=== PATIENT | female | born 1955 | race African-American/Black ===

== ENCOUNTER 2016-05-22 15:30 | Inpatient (IN) | payer MEDICARE, MEDICAID ==
[~2016-05-22] VITALS: Ht 175.3 cm; Wt 95.3 kg
[2016-05-22] MEDS: [UNRECOGNIZED DRUG - OTHER] IVPB SCH ×2 (00:45)
[2016-05-22] MEDS: CEFTRIAXONE IVPB SCH ×2 (00:45)
[~2016-05-22 15:30] MED LIST: ALBUTEROL SULF8.5 GM INH; AMOXICILLIN500 MG ORAL; AZITHROMYCIN250 MG ORAL; CYCLOBENZAPRINE10 MG ORAL; FLONASE1 SPRAYS NASAL; FLOVENT2 PUFF2 INH; IBUPROFEN600 MG ORAL; IBUPROFEN800 MG ORAL; LEVAQUIN500 MG ORAL; OXYCODON-ACETA1 EAC2 ORAL; PERCOCET 7.5-31 EACH ORAL; PREDNISONE20 M1 PO; PREDNISONE20 MG ORAL; PRILOSEC OTC20 MG ORAL; PROAIR HFA8.5 GM INH; PROMETH-CODEIN 65 ML PO; PROMETHAZINE V237 ML ORAL; PROMETHAZINE-C118 M1 ORAL; QVAR7.3 GM INH; TRAZODONE HCL150 MG ORAL; TRILEPTAL150 MG ORAL; VISTARIL25 MG ORAL; ZANTAC150 MG ORAL; ZITHROMAX250 MG ORAL
[2016-05-22] MEDS ORDERED: Albuterol ud Inhalation HHN ONE ×2 (16:00→16:30)
[2016-05-22 16:01] VITALS: BP 150/80
--- NOTE | 2016-05-22 16:01 | Emergency Room Report ---
History of Present Illness General Chief Complaint: Upper Respiratory Illness Source: Patient, Medical Record Present Illness HPI 61-year-old female presents to emergency Department complaining of wheezing and exacerbation of asthma x2 days. Patient states her albuterol treatments at home have not been working. Patient denies fevers or chills. She reports persistent coughing 10 out of 10 pain in the back due to coughing, history of spinal surgery and ayleen placement several years ago. Denies sputum production. Denies CP, Palpitations, LOC, AMS, dizziness, Changes in Vision, Sensation, paresthesias, or a sudden severe headache. Allergies: Coded Allergies: No Known Allergies (Unverified , 10/08/13) Patient History Past Medical History: see triage record Past Surgical History: none Pertinent Family History: none Last Menstrual Period: menopause Now: No Immunizations: UTD Reviewed Nursing Documentation: PMH: Agreed, PSxH: Agreed Nursing Documentation-PMH Past Medical History: No History, Except For Hx Cardiac Problems: No Hx Hypertension: Yes Hx Pacemaker: No Hx Asthma: Yes - BRONCHITIS Hx Diabetes: No Hx Cancer: No Hx Gastrointestinal Problems: No Hx Cerebrovascular Accident: No - SCIATICA, SINUS INFECTIONS Review of Systems All Other Systems: negative except mentioned in HPI Physical Exam Vital Signs Date Time Temp Pulse Resp B/P Pulse Ox O2 Delivery O2 Flow Rate FiO2 05/22/16 15:45 97.9 90 24 150/80 97 Room Air Sp02 EP Interpretation: reviewed, normal General Appearance: no apparent distress, alert, GCS 15, non-toxic, mild distress Head: normocephalic, atraumatic Eyes: bilateral eye PERRL, bilateral eye normal inspection ENT: hearing grossly normal, normal pharynx Neck: full range of motion, no meningismus, no bony tend, supple/symm/no masses Respiratory: chest non-tender, lungs clear, normal breath sounds, no rhonchi, no respiratory distress, no retraction, no accessory muscle use, speaking full sentences, wheezing - significant expiratory wheezes bilaterally Cardiovascular #1: regular rate, rhythm, no edema Cardiovascular #2: 2+ radial (R), 2+ radial (L) Gastrointestinal: normal bowel sounds, non tender, soft, no guarding, no rebound Rectal: deferred Genitourinary: normal inspection, no CVA tenderness Musculoskeletal: back normal, gait/station normal, normal range of motion, non- tender, no calf tenderness Neurologic: alert, oriented x3, responsive, motor strength/tone normal, sensory intact, speech normal Psychiatric: judgement/insight normal, memory normal, mood/affect normal, no suicidal/homicidal ideation Reflexes: 4+ bicep (R), 4+ bicep (L), 4+ tricep (R), 4+ tricep (L), 4+ knee (R) , 4+ knee (L) Skin: normal color, no rash, warm/dry, well hydrated Lymphatic: no adenopathy Medical Decision Making PA Attestation Dr. Werner is my supervising Physician whom patient management has been discussed with. Diagnostic Impression: Primary Impression: Pneumonia Qualified Codes: J18.9 - Pneumonia, unspecified organism ER Course Pt. presents to the ED c/o cough and wheezing x 2 days, Pt. has a hx of asthma, and inhaler treatments at home are not helping. Ddx considered but are not limited to asthma exacerbation, CHF, URI, pneumonia, PE, strep pharyngitis, meningitis. Vital signs: Pt. is afebrile, VS are WNL H&PE are most consistent with asthma exacerbation, will r/o pneumonia or cardiac cause. ORDERS: - Troponins: WNL -Total CK: mildly elevated at 224 -CK-MB: WNL/ unremarkable - CBC: unremarkable -BMP: unremarkable -CXR: left sided effusion noted, will treat as pneumonia - per preliminary read in the ED By Dr. Werner. ED INTERVENTIONS: - Albuterol nebulized treatment. X 2 - 60mg Po Prednisone -IV Rocephin DISPOSITION: at this time pt. will be admitted to Dr. Jarvis for Pneumonia and dyspnea. Dr. Jarvsi agreed to admit the pt. and to continue pt. care management. Labs Test 05/22/16 17:20 05/23/16 10:15 White Blood Count 9.2 K/UL (4.8-10.8) Red Blood Count 4.53 M/UL (4.20-5.40) Hemoglobin 13.2 G/DL (12.0-16.0) Hematocrit 42.0 % (37.0-47.0) Mean Corpuscular Volume 93 FL (80-99) Mean Corpuscular Hemoglobin 29.1 PG (27.0-31.0) Mean Corpuscular Hemoglobin Concent 31.3 G/DL (32.0-36.0) Red Cell Distribution Width 12.7 % (11.6-14.8) Platelet Count 282 K/UL (150-450) Mean Platelet Volume 6.2 FL (6.5-10.1) Neutrophils (%) (Auto) 48.1 % (45.0-75.0) Lymphocytes (%) (Auto) 29.4 % (20.0-45.0) Monocytes (%) (Auto) 9.5 % (1.0-10.0) Eosinophils (%) (Auto) 11.9 % (0.0-3.0) Basophils (%) (Auto) 1.0 % (0.0-2.0) Sodium Level 144 mEQ/L (135-145) 142 mEQ/L (135-145) Potassium Level 3.1 mEQ/L (3.4-4.9) 4.2 mEQ/L (3.4-4.9) Chloride Level 102 mEQ/L (98-107) 102 mEQ/L (98-107) Carbon Dioxide Level 27 mEQ/L (20-30) 27 mEQ/L (20-30) Anion Gap 15 (5-15) 13 (5-15) Blood Urea Nitrogen 9 mg/dL (7-23) 11 mg/dL (7-23) Creatinine 1.0 mg/dL (0.5-0.9) 0.8 mg/dL (0.5-0.9) Estimat Glomerular Filtration Rate > 60 mL/min (>60) > 60 mL/min (>60) Glucose Level 110 mg/dL (74-106) 158 mg/dL (74-106) Calcium Level 9.5 mg/dL (8.6-10.2) 10.0 mg/dL (8.6-10.2) Total Creatine Kinase 294 U/L (26-140) Creatine Kinase MB 3.7 ng/mL (< 3.8) Creatine Kinase MB Relative Index 1.2 Troponin I < 0.30 ng/mL (<=0.30) Total Bilirubin 0.2 mg/dL (0.0-1.2) Aspartate Amino Transf (AST/SGOT) 27 U/L (5-40) Alanine Aminotransferase (ALT/SGPT) 24 U/L (3-33) Alkaline Phosphatase 106 U/L (35-104) Total Protein 7.3 g/dL (6.6-8.7) Albumin 4.5 g/dL (3.5-5.2) Globulin 2.8 g/dL Albumin/Globulin Ratio 1.6 (1.0-2.7) Chest X-Ray Diagnostic Results EP Interpretation: Yes - interpreted by Dr. Werner Findings: no pneumothorax, no acute cardiopulmonary disease, other - left side effusion Number of Views: 1 PA Scribe Text Interpreted by Dr. Werner Last Vital Signs Date Time Temp Pulse Resp B/P Pulse Ox O2 Delivery O2 Flow Rate FiO2 05/22/16 15:45 97.9 90 24 150/80 97 Room Air Disposition: ADMITTED INPATIENT Condition: Stable Mary Myrick May 22, 2016 16:01
[2016-05-22] MEDS ORDERED: Morphine Sulfate 4mg/ml Inj IM ONE (16:15)
--- NOTE | 2016-05-22 16:35 | History & Physical ---
History and Physical History & Physicial Vital Signs -Extended Height: 69 inches Weight: 210 pounds Temperature: 98.6 degrees F ( oral) Pulse rate: 60 /min Pulse rhythm: regular Respirations: 13 /min O2 Sat: 98% Blood Pressure: 132/82 mm Hg Calculations Body Mass Index: 31.12 Body Surface Area (m2): 2.11 History of Present Illness Hx. Source: patient Primary complaint: PULMONARY CONSULTATION Duration: 6 months Trend of sx: sudden onset Treatment: albuterol Trend of Tx: temporary relief Additional HPI: 61 year old female patient presents for pulmonary evaluation. The cough has been present for 6 months. The cough is dry and occasionally has phelgm, the color of the phelgm is yellow and clear. She admits to shortness of breath with wheezing and chest tightness. She also complains of back pain and body aches. The patient has used the following to relieve symptoms: Albuterol Her evaluation include: chest XR that stated she had pnuemonia. Active Medications: VIRTUSSIN A/C 100-10 MG/5ML ORAL SOLN (GUAIFENESIN-CODEINE) 5ml po tid CYCLOBENZAPRINE HCL 10 MG ORAL TABS (CYCLOBENZAPRINE HCL) Take one tablet daily OMEPRAZOLE 40 MG ORAL CPDR (OMEPRAZOLE) Take one tablet daily OXYCODONE-ACETAMINOPHEN 10-325 MG ORAL TABS (OXYCODONE-ACETAMINOPHEN) 1 tab every 6 hours as needed LYRICA 50 MG ORAL CAPS (PREGABALIN) Take one tablet daily then two tabs every evening. HYDROXYZINE HCL 25 MG ORAL TABS (HYDROXYZINE HCL) Take one tablet daily TRAZODONE HCL 100 MG ORAL TABS (TRAZODONE HCL) Take one tablet daily VENTOLIN HFA 108 (90 BASE) MCG/ACT INH AERS (ALBUTEROL SULFATE) 1 puff as needed Past History Past Medical History: Hx of pnuemonia Asthmatic bronchitis Surgical History: Lower back surgery- 4 disc removal Epidural injection 2016 Left knee replacement Family History: Father ; diabetes Mother ; hypertension Social History: ; 1 child: lives alone; born in [place] Risk Factors: Smoked Tobacco Use: Former smoker Cigarettes: Yes -- 1 1/2 pack(s) per day, Year started: 1960 Years smoked: 12 Years Since Last Quit: 30 Drug use: yes Substance: cocaine Comments: Past usage. Caffeine use: <1 drinks per day Alcohol use: no Review of Systems Respiratory: SEE HPI Asthma Physical Exam General Appearance: well nourished, well hydrated, moderate distress Ear, Nose &Throat External Ears: normal, no lesions or deformities Respiratory Respiratory Effort: no intercostal retractions or use of accessory muscles Palpation: normal fremitus Auscultation: diffuse wheeze with poor air entry Cardiovascular Palpation: no thrill or palpable murmurs, no displacement of PMI Auscultation: S1, S2, no murmur, rub, or gallop Musculoskeletal Gait and Station: normal and dyspneic [Lab Results Review] Assessment New Problems: Dx of Asthma, with acute exacerbation (ICD-493.92) Onset: 05/22/2016 Dx of Asthmatic bronchitis (ICD-493.90) Onset: - Dx of Body aches (ICD-780.99) Onset: - Dx of Headache (ICD-784.0) Onset: - Dx of Hx of pneumonia (ICD-V12.61) Onset: 7 months Dx of Chest tightness (ICD-786.59) Onset: - Dx of Wheezing (ICD-786.07) Onset: - Dx of Shortness of breath (ICD-786.05) Onset: - Dx of Cough (ICD-786.2) Onset: 6 months Plan New medications: VIRTUSSIN A/C 100-10 MG/5ML ORAL SOLN -- 5ml po tid CYCLOBENZAPRINE HCL 10 MG ORAL TABS -- Take one tablet daily OMEPRAZOLE 40 MG ORAL CPDR -- Take one tablet daily OXYCODONE-ACETAMINOPHEN 10-325 MG ORAL TABS -- 1 tab every 6 hours as needed LYRICA 50 MG ORAL CAPS -- Take one tablet daily then two tabs every evening. HYDROXYZINE HCL 25 MG ORAL TABS -- Take one tablet daily TRAZODONE HCL 100 MG ORAL TABS -- Take one tablet daily VENTOLIN HFA 108 (90 BASE) MCG/ACT INH AERS -- 1 puff as needed Additional Plan Comments: ADMIT IV SOLUMEDROL NEBULIZED THERAPY OXYGEN ABG CHEST XR START BREO AND SINGULAIR RESUME HOME MEDS MONITOR CLINICALLY LAYNE STEWART May 22, 2016 16:35
[2016-05-22] MEDS ORDERED: PredniSONE 20mg tab ORAL ONE (16:45)
[2016-05-22 17:33] LABS: EOSINOPHILS % (AUTO) 11.9 % (0.0-3.0); LYMPHOCYTES % (AUTO) 29.4 % (20.0-45.0); MEAN CORPUSCULAR HEMOGLOBIN 29.1 PG (27.0-31.0); MEAN CORPUSCULAR HGB CONC 31.3 G/DL (32.0-36.0); MEAN CORPUSCULAR VOLUME 93 FL (80-99); MEAN PLATELET VOLUME 6.2 FL (6.5-10.1); MONOCYTES % (AUTO) 9.5 % (1.0-10.0); NEUTROPHILS % (AUTO) 48.1 % (45.0-75.0); PLATELET COUNT 282 K/UL (150-450); RED BLOOD COUNT 4.53 M/UL (4.20-5.40); RED CELL DISTRIBUTION WIDTH 12.7 % (11.6-14.8); WHITE BLOOD COUNT 9.2 K/UL (4.8-10.8)
[2016-05-22 17:48] LABS: ANION GAP 15 (5-15); CALCIUM 9.5 mg/dL (8.6-10.2); CARBON DIOXIDE 27 mEQ/L (20-30); CHLORIDE 102 mEQ/L (98-107); GLOMERULAR FILTRATION RATE > 60 mL/min (>60); HEMOLYSIS 4; POTASSIUM 3.1 mEQ/L (3.4-4.9); SODIUM 144 mEQ/L (135-145)
[2016-05-22 18:16] VITALS: BP 141/76
[2016-05-22 20:00] VITALS: BP 139/75
[2016-05-22 20:15] LABS: TROPONIN I < 0.30 ng/mL (<=0.30)
[2016-05-22 20:24] LABS: CKMB 3.7 ng/mL (< 3.8)
[2016-05-22 21:10] VITALS: BP 155/59
[2016-05-22] MEDS ORDERED: Milk of Magnesia 30ml Ud ORAL PRN (23:30)
[2016-05-22] MEDS ORDERED: OMEPRAZOLE40 M1 ORAL (23:50)
[2016-05-22] MEDS ORDERED: LYRICA150 MG ORAL (23:56)
[2016-05-23] VITALS (7 sets, daily range): BP systolic 105–152; BP diastolic 43–84
[2016-05-23] MEDS: Norco 5mg/325mg tab ORAL PRN ×3 (00:03→18:09)
[2016-05-23] MEDS: Solu-MEDROL 40mg Inj IVP SCH ×4 (00:26→22:14)
[2016-05-23] MEDS: Zolpidem 5mg tab ORAL PRN (00:43)
[2016-05-23] MEDS: guaiFENesin w/Codeine 5ml Liq ud ORAL PRN ×3 (01:15→20:26)
--- NOTE | 2016-05-23 06:27 | History and Physical Report ---
DATE OF ADMISSION: 05/22/2016 CHIEF COMPLAINT: Asthma exacerbation and bronchitis. HISTORY OF PRESENT ILLNESS: The patient is a 61-year-old female. She has a history of chronic lower back pain, mild asthma, she presented with six days of progressive shortness of breath, wheezing and productive cough. The patient was noted to have significant wheezing and has failed to improve with aggressive outpatient therapy and is now admitted for further evaluation and care. The patient denies any chest pain, but she has had some chest tightness and wheezing. She does have a prior history of smoking. PAST MEDICAL HISTORY: Her past medical history significant for history of chronic low back pain. PAST SURGICAL HISTORY: Includes back surgery. MEDICATIONS: Current medications reconciled and reviewed. ALLERGIES: None. SOCIAL HISTORY: The patient is a prior smoker. No alcohol. No drugs. FAMILY HISTORY: None. REVIEW OF SYSTEMS: General: No fever or chills. HEENT: No headaches or visual changes. Cardiopulmonary: Positive shortness of breath. No wheezing. Positive cough. Gastrointestinal: No nausea or vomiting. Genitourinary: No urgency or frequency. Musculoskeletal: No joint pains or swelling. Neurological: No evidence of seizures. PHYSICAL EXAMINATION: VITAL SIGNS: Temperature 98.0 degrees, blood pressure 141/76, pulse of 76, and respirations 19. GENERAL: The patient is in no apparent distress. HEART: Regular rate and rhythm. LUNGS: Significant for bilateral wheezes. ABDOMEN: Soft, nontender, and nondistended. EXTREMITIES: Without clubbing, cyanosis, or edema. LABORATORY AND DIAGNOSTIC DATA: Labs, sodium 144, potassium 3.1, chloride 102, bicarbonate 27, BUN 9, and creatinine is 1. White count of 9. Chest x-ray is clear. ASSESSMENT: This is a pleasant female with complaints of asthma exacerbation and bronchitis: 1. aspiration. 2. Bronchitis. 3. History of chronic lower back pain. PLAN: Intravenous steroids, respiratory treatments [id number], IV antibiotics. Pulmonary consultation. DVT stress ulcer prophylaxis. Howard Mccormick M.D. DR: Suhail JOB#: [id number] CC:
--- NOTE | 2016-05-23 08:40 | Pulmonology Progress Note ---
Assessment/Plan Assessment/Plan New Problems: Dx of Asthma, with acute exacerbation (ICD-493.9 Dx of Asthmatic bronchitis (ICD-493.90) Dx of Body aches (ICD-780.99) Dx of Headache (ICD-784.0) Dx of Hx of pneumonia (ICD-V12.61) Dx of Chest tightness (ICD-786.59) Dx of Wheezing (ICD-786.07) Dx of Shortness of breath (ICD-786.05) Dx of Cough (ICD-786.2) PLAN IV steroids Advair albuterol nebs empiric antibiotics oxygen stablize still very acute impression, plan, and exam edited and reviewed in detail care discussed with RN Subjective Allergies: Coded Allergies: No Known Allergies (Unverified , 10/08/13) Subjective still dyspneic cough sob Objective Last 24 Hour Vital Signs Date Time Temp Pulse Resp B/P Pulse Ox O2 Delivery O2 Flow Rate FiO2 05/23/16 04:00 97.6 84 18 137/76 98 Nasal Cannula 05/23/16 00:00 96.6 87 18 146/79 92 Room Air 05/22/16 21:10 97.9 58 20 155/59 94 Room Air 05/22/16 20:00 97.9 85 19 139/75 97 Room Air 05/22/16 18:47 97.9 76 19 141/76 98 Nasal Cannula 05/22/16 18:41 97.9 05/22/16 18:16 76 19 141/76 98 Nasal Cannula 05/22/16 16:50 90 19 98 Nasal Cannula 2.0 28 05/22/16 16:30 95 22 97 Nasal Cannula 2.0 28 05/22/16 16:30 28 05/22/16 16:20 95 22 97 Nasal Cannula 2.0 28 05/22/16 16:01 97.9 24 150/80 97 Room Air 05/22/16 16:00 90 24 Nasal Cannula 2.0 05/22/16 16:00 92 25 97 Nasal Cannula 2.0 05/22/16 16:00 28 05/22/16 16:00 92 25 Nasal Cannula 2.0 96 05/22/16 15:45 97.9 90 24 150/80 97 Room Air Intake and Output 05/22/16 05/23/16 19:00 07:00 Intake Total 260 ml Balance 260 ml Intake Oral 260 ml # Voids 2 Objective WDWN mild distress reduced breath sounds bilaterally with rhonchi and wheeze [id number] without MRG NABS nontender no HSM no CCE nonfocal alert and oriented x 3 EOMI Laboratory Tests 05/22/16 17:20: White Blood Count 9.2, Red Blood Count 4.53, Hemoglobin 13.2, Hematocrit 42.0, Mean Corpuscular Volume 93, Mean Corpuscular Hemoglobin 29.1, Mean Corpuscular Hemoglobin Concent 31.3L, Red Cell Distribution Width 12.7, Platelet Count 282, Mean Platelet Volume 6.2L, Neutrophils (%) (Auto) 48.1, Lymphocytes (%) (Auto) 29.4, Monocytes (%) (Auto) 9.5, Eosinophils (%) (Auto) 11.9H, Basophils (%) ( Auto) 1.0, Sodium Level 144, Potassium Level 3.1L, Chloride Level 102, Carbon Dioxide Level 27, Anion Gap 15, Blood Urea Nitrogen 9, Creatinine 1.0H, Estimat Glomerular Filtration Rate > 60, Glucose Level 110H, Calcium Level 9.5, Total Creatine Kinase 294H, Creatine Kinase MB 3.7, Creatine Kinase MB Relative Index 1.2, Troponin I < 0.30 Current Medications Medications (Trade) Dose Ordered Sig/Lalo Route PRN Reason Start Time Stop Time Status Last Admin Dose Admin Acetaminophen (Tylenol) 650 mg Q4H PRN ORAL Mild Pain/Temp > 100.5 05/22/16 23:30 06/21/16 23:29 Acetaminophen/ Hydrocodone Bitart (Pillsbury 5/325) 1 tab Q4H PRN ORAL Severe Pain (Pain Scale 7-10) 05/22/16 23:30 05/29/16 23:29 05/23/16 00:03 Albuterol/ Ipratropium (DuoNeb 0.5-3(2.5)mg/3ml) 3 ml Q4H PRN HHN Shortness of Breath 05/23/16 01:00 05/28/16 00:59 Ceftriaxone Sodium/Dextrose (Rocephin/D5W 50ml) 50 ml @ 100 mls/hr Q24H IVPB 05/22/16 23:45 05/29/16 23:44 05/22/16 00:45 Guaifenesin/ Codeine Phosphate (Robitussin with codeine) 5 ml Q4HR PRN ORAL For Cough 05/22/16 23:30 06/21/16 23:29 05/23/16 01:15 Heparin Sodium (Porcine) (Heparin 5000 units/ml) 5,000 units EVERY 12 HOURS SUBQ 05/23/16 09:00 06/22/16 08:59 Hydroxyzine HCl (Atarax) 25 mg BID PRN ORAL Itching 05/23/16 00:00 06/22/16 00:00 Magnesium Hydroxide (Mom) 30 ml DAILYPRN PRN ORAL Constipation 05/22/16 23:30 06/21/16 23:29 Methylprednisolone Sodium Succinate (Solu-MEDROL) 40 mg EVERY 8 HOURS IVP 05/23/16 00:00 06/22/16 00:00 05/23/16 06:44 Montelukast Sodium (Singulair) 10 mg DAILY ORAL 05/23/16 09:00 06/22/16 08:59 Pantoprazole (Protonix) 40 mg DAILY IVP 05/23/16 09:00 06/22/16 08:59 Pregabalin (Lyrica) 50 mg DAILY ORAL 05/23/16 09:00 06/22/16 08:59 Pregabalin (Lyrica) 100 mg BEDTIME ORAL 05/23/16 21:00 06/22/16 20:59 Salmeterol Xinafoate/ Fluticasone 1 puffs 1 puffs BID INH 05/23/16 09:00 06/22/16 08:59 Zolpidem Tartrate (Ambien) 10 mg HSPRN PRN ORAL Insomnia 05/22/16 23:30 06/21/16 23:29 05/23/16 00:43 LAYNE STEWART May 23, 2016 08:40
--- NOTE | 2016-05-23 08:46 | Diagnostic Imaging Report ---
Indication: COUGH Technique: Single portable AP view of the chest. Findings: Comparison: 02/17/2016 The bones and extra pulmonary soft tissues, cardiomediastinal silhouette, pulmonary vasculature and parenchyma, and pleural surfaces remain unremarkable. IMPRESSION: Negative portable AP chest, unchanged.
[2016-05-23] MEDS: Advair 250/50 Inhaler - 14 dose INH SCH ×2 (09:01→20:17)
[2016-05-23] MEDS: Heparin 5000 units/ml inj SUBQ SCH ×2 (09:36→22:17)
[2016-05-23] MEDS: Montelukast 10mg tablet ORAL SCH (09:38)
[2016-05-23] MEDS: Pantoprazole Inj IVP SCH (09:39)
[2016-05-23] MEDS: Lyrica 50mg cap ORAL SCH ×2 (09:56→22:16)
[2016-05-23 10:57] LABS: ALANINE AMINOTRANSFERASE 24 U/L (3-33); ALBUMIN/GLOBULIN RATIO 1.6 (1.0-2.7); ANION GAP 13 (5-15); ASPARTATE AMINO TRANSFERASE 27 U/L (5-40); CARBON DIOXIDE 27 mEQ/L (20-30); CHLORIDE 102 mEQ/L (98-107); CREATININE 0.8 mg/dL (0.5-0.9); GLOMERULAR FILTRATION RATE > 60 mL/min (>60); HEMOLYSIS 3; POTASSIUM 4.2 mEQ/L (3.4-4.9); SODIUM 142 mEQ/L (135-145); TOTAL PROTEIN 7.3 g/dL (6.6-8.7)
--- NOTE | 2016-05-23 17:36 | Cardiology Report ---
APPROVED REPORT EKG Measurement Heart [id number] Normal sinus rhythm Cannot rule out Anterior infarct, age undetermined Abnormal ECG
[2016-05-24] MEDS: CEFTRIAXONE IVPB SCH ×4 (01:21→23:45)
[2016-05-24] MEDS: [UNRECOGNIZED DRUG - OTHER] IVPB SCH ×4 (01:21→23:45)
[2016-05-24] MEDS: Norco 5mg/325mg tab ORAL PRN ×4 (01:22→23:04)
[2016-05-24] MEDS: Zolpidem 5mg tab ORAL PRN (01:32)
[2016-05-24] MEDS: DuoNeb 0.5-3(2.5)mg/3ml neb HHN PRN ×2 (01:54→19:28)
[2016-05-24 04:00] VITALS: BP 125/65
[2016-05-24] MEDS: Solu-MEDROL 40mg Inj IVP SCH ×3 (05:53→22:00)
[2016-05-24 08:00] VITALS: BP 127/78
[2016-05-24] MEDS: guaiFENesin w/Codeine 5ml Liq ud ORAL PRN ×2 (08:00→20:36)
--- NOTE | 2016-05-24 08:19 | General Progress Note ---
Assessment/Plan Problem List: (1) Back pain ICD Codes: M54.9 - Dorsalgia, unspecified SNOMED: 913312295 Qualifiers: (2) Lumbar radiculopathy, acute ICD Codes: M54.10 - Radiculopathy, site unspecified SNOMED: 086599360 (3) URI (upper respiratory infection) ICD Codes: J06.9 - Acute upper respiratory infection, unspecified SNOMED: 80523524 Qualifiers: Qualified Codes: J06.9 - Acute upper respiratory infection, unspecified; B97.89 - Other viral agents as the cause of diseases classified elsewhere (4) Asthma exacerbation ICD Codes: J45.901 - Unspecified asthma with (acute) exacerbation SNOMED: 457307259 Status: stable, progressing Status Narrative cont iv steroids resp rx need to order home hand held nebulizer abx o2 Subjective ROS Limited/Unobtainable: No Constitutional: Reports: malaise, weakness HEENT: Reports: no symptoms Cardiovascular: Reports: no symptoms Respiratory: Reports: cough, wheezing Gastrointestinal/Abdominal: Reports: no symptoms Genitourinary: Reports: no symptoms Neurologic/Psychiatric: Reports: no symptoms Endocrine: Reports: no symptoms Allergies: Coded Allergies: No Known Allergies (Unverified , 10/08/13) All Systems: reviewed and negative except above Subjective less sob but still with wheezing. requesting HHN at home Objective Last 24 Hour Vital Signs Date Time Temp Pulse Resp B/P Pulse Ox O2 Delivery O2 Flow Rate FiO2 05/24/16 04:00 98.2 68 20 125/65 94 Room Air 05/24/16 02:02 85 18 96 Nasal Cannula 2.0 28 05/24/16 01:55 28 05/24/16 01:54 88 18 92 Nasal Cannula 2.0 28 05/23/16 23:59 97.2 69 20 105/43 92 Nasal Cannula 2.0 05/23/16 20:21 90 18 Nasal Cannula 2.0 05/23/16 20:20 90 18 95 Nasal Cannula 2.0 28 05/23/16 20:19 28 05/23/16 20:11 94 18 95 Nasal Cannula 2.0 28 05/23/16 20:00 97.7 89 20 152/79 96 Room Air 05/23/16 19:08 97.3 05/23/16 16:00 97.3 79 20 140/71 94 Nasal Cannula 2.0 05/23/16 12:15 98.7 89 18 130/84 96 Nasal Cannula 05/23/16 09:01 90 18 Nasal Cannula 2.0 97 05/23/16 09:01 80 18 97 Nasal Cannula 2.0 28 05/23/16 09:01 91 18 98 Nasal Cannula 2.0 28 05/23/16 09:01 28 Intake and Output 05/23/16 05/24/16 19:00 07:00 Intake Total 350 ml 600 ml Balance 350 ml 600 ml Intake Oral 350 ml 600 ml # Voids 3 3 Laboratory Tests 05/23/16 10:15: Sodium Level 142, Potassium Level 4.2, Chloride Level 102, Carbon Dioxide Level 27, Anion Gap 13, Blood Urea Nitrogen 11, Creatinine 0.8, Estimat Glomerular Filtration Rate > 60, Glucose Level 158H, Calcium Level 10.0, Total Bilirubin 0.2, Aspartate Amino Transf (AST/SGOT) 27, Alanine Aminotransferase (ALT/SGPT) 24, Alkaline Phosphatase 106H, Total Protein 7.3, Albumin 4.5, Globulin 2.8, Albumin/Globulin Ratio 1.6 Height (Feet): 5 Height (Inches): 9.00 Weight (Pounds): 210 General Appearance: WD/WN, alert Neck: supple Cardiovascular: normal peripheral pulses, normal rate, regular rhythm Respiratory/Chest: expiratory wheezing Abdomen: normal bowel sounds, non tender, soft, no organomegaly, no mass Edema: no edema noted Arm (L), no edema noted Arm (R), no edema noted Leg (L), no edema noted Leg (R), no edema noted Pedal (L), no edema noted Pedal (R), no edema noted Generalized BETHANIE CAVANAUGH May 24, 2016 08:19
--- NOTE | 2016-05-24 08:21 | Pulmonology Progress Note ---
Assessment/Plan Assessment/Plan New Problems: Dx of Asthma, with acute exacerbation (ICD-493.9 Dx of Asthmatic bronchitis (ICD-493.90) GNR on sputum Dx of Body aches (ICD-780.99) Dx of Headache (ICD-784.0) Dx of Hx of pneumonia (ICD-V12.61) Dx of Chest tightness (ICD-786.59) Dx of Wheezing (ICD-786.07) Dx of Shortness of breath (ICD-786.05) Dx of Cough (ICD-786.2) PLAN IV steroids as is Advair albuterol nebs empiric antibiotics; check final cultures oxygen stablize still requires acute care impression, plan, and exam edited and reviewed in detail care discussed with RN Subjective Allergies: Coded Allergies: No Known Allergies (Unverified , 10/08/13) Subjective still dyspneic cough sob and chest tightness Objective Last 24 Hour Vital Signs Date Time Temp Pulse Resp B/P Pulse Ox O2 Delivery O2 Flow Rate FiO2 05/24/16 04:00 98.2 68 20 125/65 94 Room Air 05/24/16 02:02 85 18 96 Nasal Cannula 2.0 28 05/24/16 01:55 28 05/24/16 01:54 88 18 92 Nasal Cannula 2.0 28 05/23/16 23:59 97.2 69 20 105/43 92 Nasal Cannula 2.0 05/23/16 20:21 90 18 Nasal Cannula 2.0 05/23/16 20:20 90 18 95 Nasal Cannula 2.0 28 05/23/16 20:19 28 05/23/16 20:11 94 18 95 Nasal Cannula 2.0 28 05/23/16 20:00 97.7 89 20 152/79 96 Room Air 05/23/16 19:08 97.3 05/23/16 16:00 97.3 79 20 140/71 94 Nasal Cannula 2.0 05/23/16 12:15 98.7 89 18 130/84 96 Nasal Cannula 05/23/16 09:01 90 18 Nasal Cannula 2.0 97 05/23/16 09:01 80 18 97 Nasal Cannula 2.0 28 05/23/16 09:01 91 18 98 Nasal Cannula 2.0 28 05/23/16 09:01 28 Intake and Output 05/23/16 05/24/16 19:00 07:00 Intake Total 350 ml 600 ml Balance 350 ml 600 ml Intake Oral 350 ml 600 ml # Voids 3 3 Objective WDWN some distress reduced breath sounds bilaterally with rhonchi and wheeze minimally improved [id number] without MRG NABS nontender no HSM no CCE nonfocal alert and oriented x 3 EOMI Microbiology Date/Time Source Procedure Growth Status 05/23/16 00:36 Sputum Expectorated Gram Stain Pending Resulted 05/23/16 00:36 Sputum Culture - Preliminary Gram Negative Bacillus 1 Resulted Laboratory Tests 05/23/16 10:15: Sodium Level 142, Potassium Level 4.2, Chloride Level 102, Carbon Dioxide Level 27, Anion Gap 13, Blood Urea Nitrogen 11, Creatinine 0.8, Estimat Glomerular Filtration Rate > 60, Glucose Level 158H, Calcium Level 10.0, Total Bilirubin 0.2, Aspartate Amino Transf (AST/SGOT) 27, Alanine Aminotransferase (ALT/SGPT) 24, Alkaline Phosphatase 106H, Total Protein 7.3, Albumin 4.5, Globulin 2.8, Albumin/Globulin Ratio 1.6 Current Medications Medications (Trade) Dose Ordered Sig/Lalo Route PRN Reason Start Time Stop Time Status Last Admin Dose Admin Acetaminophen (Tylenol) 650 mg Q4H PRN ORAL Mild Pain/Temp > 100.5 05/22/16 23:30 06/21/16 23:29 Acetaminophen/ Hydrocodone Bitart ([place] 5/325) 1 tab Q4H PRN ORAL Severe Pain (Pain Scale 7-10) 05/22/16 23:30 05/29/16 23:29 05/24/16 01:22 Albuterol/ Ipratropium (DuoNeb 0.5-3(2.5)mg/3ml) 3 ml Q4H PRN HHN Shortness of Breath 05/23/16 01:00 05/28/16 00:59 05/24/16 01:54 Ceftriaxone Sodium/Dextrose (Rocephin/D5W 50ml) 50 ml @ 100 mls/hr Q24H IVPB 05/22/16 23:45 05/29/16 23:44 05/24/16 01:21 Guaifenesin/ Codeine Phosphate (Robitussin with codeine) 5 ml Q4HR PRN ORAL For Cough 05/22/16 23:30 06/21/16 23:29 05/24/16 08:00 Heparin Sodium (Porcine) (Heparin 5000 units/ml) 5,000 units EVERY 12 HOURS SUBQ 05/23/16 09:00 06/22/16 08:59 05/23/16 22:17 Hydroxyzine HCl (Atarax) 25 mg BID PRN ORAL Itching 05/23/16 00:00 06/22/16 00:00 Magnesium Hydroxide (Mom) 30 ml DAILYPRN PRN ORAL Constipation 05/22/16 23:30 06/21/16 23:29 Methylprednisolone Sodium Succinate (Solu-MEDROL) 40 mg EVERY 8 HOURS IVP 05/23/16 00:00 06/22/16 00:00 05/24/16 05:53 Montelukast Sodium (Singulair) 10 mg DAILY ORAL 05/23/16 09:00 06/22/16 08:59 05/23/16 09:38 Pantoprazole (Protonix) 40 mg DAILY IVP 05/23/16 09:00 06/22/16 08:59 05/23/16 09:39 Pregabalin (Lyrica) 50 mg DAILY ORAL 05/23/16 09:00 06/22/16 08:59 05/23/16 09:56 Pregabalin (Lyrica) 100 mg BEDTIME ORAL 05/23/16 21:00 06/22/16 20:59 05/23/16 22:16 Salmeterol Xinafoate/ Fluticasone 1 puffs 1 puffs BID INH 05/23/16 09:00 06/22/16 08:59 05/23/16 20:17 Zolpidem Tartrate (Ambien) 10 mg HSPRN PRN ORAL Insomnia 05/22/16 23:30 06/21/16 23:29 05/24/16 01:32 LAYNE STEWART May 24, 2016 08:21
[2016-05-24] MEDS: Lyrica 50mg cap ORAL SCH (09:14)
[2016-05-24] MEDS: Advair 250/50 Inhaler - 14 dose INH SCH ×2 (09:15→19:28)
[2016-05-24] MEDS: Pantoprazole Inj IVP SCH (09:16)
[2016-05-24] MEDS: Heparin 5000 units/ml inj SUBQ SCH ×2 (09:21→23:06)
[2016-05-24] MEDS: Montelukast 10mg tablet ORAL SCH (09:36)
[2016-05-24 12:00] VITALS: BP 123/76
[2016-05-24] MEDS ORDERED: Morphine Sulfate 2mg/ml Inj IVP PRN ×2 (13:15→14:15)
[2016-05-24] MEDS: Morphine Sulfate 2mg/ml Inj IVP PRN ×2 (15:36→20:35)
[2016-05-24 16:00] VITALS: BP 142/75
[2016-05-24 20:00] VITALS: BP 138/77
[2016-05-25] VITALS: BP 146/94
[2016-05-25] MEDS: Zolpidem 5mg tab ORAL PRN (00:50)
[2016-05-25] MEDS: Lyrica 50mg cap ORAL SCH ×3 (00:51→21:13)
[2016-05-25 04:00] VITALS: BP 139/73
[2016-05-25] MEDS: guaiFENesin w/Codeine 5ml Liq ud ORAL PRN ×4 (07:07→21:13)
[2016-05-25] MEDS: Advair 250/50 Inhaler - 14 dose INH SCH ×2 (07:14→19:47)
[2016-05-25 08:00] VITALS: BP 134/71
--- NOTE | 2016-05-25 08:36 | Pulmonology Progress Note ---
Assessment/Plan Assessment/Plan New Problems: Dx of Asthma, with acute exacerbation (ICD-493.9 Dx of Asthmatic bronchitis (ICD-493.90) GNR on sputum Dx of Body aches (ICD-780.99) Dx of Headache (ICD-784.0) Dx of Hx of pneumonia (ICD-V12.61) Dx of Chest tightness (ICD-786.59) Dx of Wheezing (ICD-786.07) Dx of Shortness of breath (ICD-786.05) Dx of Cough (ICD-786.2) PLAN IV steroids taper Advair albuterol nebs empiric antibiotics; check final cultures pain control oxygen stablize hope to dc in am impression, plan, and exam edited and reviewed in detail care discussed with RN Subjective Allergies: Coded Allergies: No Known Allergies (Unverified , 10/08/13) Subjective improved dyspnea cough persistent has pain sob and chest tightness Objective Last 24 Hour Vital Signs Date Time Temp Pulse Resp B/P Pulse Ox O2 Delivery O2 Flow Rate FiO2 05/25/16 04:00 97.9 73 20 139/73 97 Room Air 05/25/16 00:00 97.5 68 20 146/94 96 Room Air 05/24/16 23:45 97.8 05/24/16 23:45 97.8 05/24/16 20:00 97.9 87 20 138/77 97 Nasal Cannula 2.0 05/24/16 19:42 80 18 97 Room Air 21 05/24/16 19:33 21 05/24/16 19:32 78 18 95 Room Air 21 05/24/16 16:00 97.7 73 20 142/75 97 Nasal Cannula 2.0 05/24/16 13:43 97.9 05/24/16 12:00 97.9 94 22 123/76 95 Room Air 05/24/16 10:45 97.9 Intake and Output 05/24/16 05/25/16 19:00 07:00 Intake Total 480 ml 660 ml Balance 480 ml 660 ml Intake Oral 480 ml 660 ml # Voids 6 Objective WDWN some distress reduced breath sounds bilaterally with rhonchi and wheeze now improved [id number] without MRG NABS nontender no HSM no CCE nonfocal alert and oriented x 3 EOMI Microbiology Date/Time Source Procedure Growth Status 05/23/16 00:36 Sputum Expectorated Gram Stain - Final Resulted 05/23/16 00:36 Sputum Culture - Preliminary Gram Negative Bacillus 1 Resulted Current Medications Medications (Trade) Dose Ordered Sig/Lalo Route PRN Reason Start Time Stop Time Status Last Admin Dose Admin Acetaminophen (Tylenol) 650 mg Q4H PRN ORAL Mild Pain/Temp > 100.5 05/22/16 23:30 06/21/16 23:29 05/24/16 12:40 Acetaminophen/ Hydrocodone Bitart ([place] 5/325) 1 tab Q4H PRN ORAL Moderate Pain (Pain Scale 4-6) 05/24/16 14:30 05/31/16 14:29 05/24/16 23:04 Albuterol/ Ipratropium (DuoNeb 0.5-3(2.5)mg/3ml) 3 ml Q4H PRN HHN Shortness of Breath 05/23/16 01:00 05/28/16 00:59 05/24/16 19:28 Ceftriaxone Sodium/Dextrose (Rocephin/D5W 50ml) 50 ml @ 100 mls/hr Q24H IVPB 05/22/16 23:45 05/29/16 23:44 05/24/16 01:21 Guaifenesin/ Codeine Phosphate (Robitussin with codeine) 5 ml Q4HR PRN ORAL For Cough 05/22/16 23:30 06/21/16 23:29 05/25/16 07:07 Heparin Sodium (Porcine) (Heparin 5000 units/ml) 5,000 units EVERY 12 HOURS SUBQ 05/23/16 09:00 06/22/16 08:59 05/24/16 23:06 Hydroxyzine HCl (Atarax) 25 mg BID PRN ORAL Itching 05/23/16 00:00 06/22/16 00:00 Magnesium Hydroxide (Mom) 30 ml DAILYPRN PRN ORAL Constipation 05/22/16 23:30 06/21/16 23:29 Methylprednisolone Sodium Succinate (Solu-MEDROL) 40 mg EVERY 8 HOURS IVP 05/23/16 00:00 06/22/16 00:00 05/24/16 14:33 Montelukast Sodium (Singulair) 10 mg DAILY ORAL 05/23/16 09:00 06/22/16 08:59 05/24/16 09:36 Morphine Sulfate (Morphine Sulfate) 2 mg Q3HR PRN IVP Severe Pain (Pain Scale 7-10) 05/24/16 14:30 05/31/16 14:29 05/24/16 20:35 Pantoprazole (Protonix) 40 mg DAILY IVP 05/23/16 09:00 06/22/16 08:59 05/24/16 09:16 Pregabalin (Lyrica) 50 mg DAILY ORAL 05/23/16 09:00 06/22/16 08:59 05/24/16 09:14 Pregabalin (Lyrica) 100 mg BEDTIME ORAL 05/23/16 21:00 06/22/16 20:59 05/25/16 00:51 Salmeterol Xinafoate/ Fluticasone 1 puffs 1 puffs BID INH 05/23/16 09:00 06/22/16 08:59 05/25/16 07:14 Zolpidem Tartrate (Ambien) 10 mg HSPRN PRN ORAL Insomnia 05/22/16 23:30 06/21/16 23:29 05/25/16 00:50 LAYNE STEWART May 25, 2016 08:36
--- NOTE | 2016-05-25 08:38 | General Progress Note ---
Assessment/Plan Problem List: (1) Back pain ICD Codes: M54.9 - Dorsalgia, unspecified SNOMED: 774987209 Qualifiers: (2) Lumbar radiculopathy, acute ICD Codes: M54.10 - Radiculopathy, site unspecified SNOMED: 854214740 (3) URI (upper respiratory infection) ICD Codes: J06.9 - Acute upper respiratory infection, unspecified SNOMED: 03144538 Qualifiers: Qualified Codes: J06.9 - Acute upper respiratory infection, unspecified; B97.89 - Other viral agents as the cause of diseases classified elsewhere (4) Asthma exacerbation ICD Codes: J45.901 - Unspecified asthma with (acute) exacerbation SNOMED: 261336079 Status: stable, progressing Status Narrative cont steroid wean per pulm resp rx o2 prn dc when cleared by pulm trying to get HHN for pt Subjective ROS Limited/Unobtainable: No Constitutional: Reports: malaise, weakness HEENT: Reports: no symptoms Cardiovascular: Reports: no symptoms Respiratory: Reports: cough, shortness of breath, wheezing Gastrointestinal/Abdominal: Reports: no symptoms Genitourinary: Reports: no symptoms Neurologic/Psychiatric: Reports: no symptoms Endocrine: Reports: no symptoms Hematologic/Lymphatic: Reports: no symptoms Allergies: Coded Allergies: No Known Allergies (Unverified , 10/08/13) All Systems: reviewed and negative except above Subjective less sob but still with wheezing. requesting HHN at home Objective Last 24 Hour Vital Signs Date Time Temp Pulse Resp B/P Pulse Ox O2 Delivery O2 Flow Rate FiO2 05/25/16 04:00 97.9 73 20 139/73 97 Room Air 05/25/16 00:00 97.5 68 20 146/94 96 Room Air 05/24/16 23:45 97.8 05/24/16 23:45 97.8 05/24/16 20:00 97.9 87 20 138/77 97 Nasal Cannula 2.0 05/24/16 19:42 80 18 97 Room Air 21 05/24/16 19:33 21 05/24/16 19:32 78 18 95 Room Air 21 05/24/16 16:00 97.7 73 20 142/75 97 Nasal Cannula 2.0 05/24/16 13:43 97.9 05/24/16 12:00 97.9 94 22 123/76 95 Room Air 05/24/16 10:45 97.9 Intake and Output 05/24/16 05/25/16 19:00 07:00 Intake Total 480 ml 660 ml Balance 480 ml 660 ml Intake Oral 480 ml 660 ml # Voids 6 Height (Feet): 5 Height (Inches): 9.00 Weight (Pounds): 210 Objective General Appearance: WD/WN, alert Neck: supple Cardiovascular: normal peripheral pulses, normal rate, regular rhythm Respiratory/Chest: expiratory wheezing Abdomen: normal bowel sounds, non tender, soft, no organomegaly, no mass Edema: no edema noted Arm (L), no edema noted Arm (R), no edema noted Leg (L), no edema noted Leg (R), no edema noted Pedal (L), no edema noted Pedal (R), no edema noted Generalized BETHANIE CAVANAUGH May 25, 2016 08:38
[2016-05-25] MEDS: Pantoprazole Inj IVP SCH (09:00)
[2016-05-25] MEDS: Heparin 5000 units/ml inj SUBQ SCH ×2 (09:10→21:14)
[2016-05-25] MEDS: HydrOXYzine 25mg tab ORAL PRN (09:11)
[2016-05-25] MEDS: Montelukast 10mg tablet ORAL SCH (09:11)
[2016-05-25] MEDS: Norco 5mg/325mg tab ORAL PRN ×2 (09:15→21:23)
[2016-05-25] MEDS: DuoNeb 0.5-3(2.5)mg/3ml neb HHN PRN ×3 (09:45→21:08)
[2016-05-25] MEDS: Solu-MEDROL 40mg Inj IVP SCH ×2 (09:50→18:16)
[2016-05-25 12:00] VITALS: BP 131/74
[2016-05-25 16:00] VITALS: BP 119/65
[2016-05-25] MEDS ORDERED: Zolpidem 5mg tab ORAL PRN (17:30)
[2016-05-25] MEDS: Morphine Sulfate 2mg/ml Inj IVP PRN (18:17)
[2016-05-25 19:00] VITALS: BP 140/80
[2016-05-26] VITALS: BP 141/72
[2016-05-26] MEDS: CEFTRIAXONE IVPB SCH ×2 (00:46)
[2016-05-26] MEDS: [UNRECOGNIZED DRUG - OTHER] IVPB SCH ×2 (00:46)
[2016-05-26] MEDS: Morphine Sulfate 2mg/ml Inj IVP PRN ×2 (01:20→09:50)
[2016-05-26 04:00] VITALS: BP 124/76
--- NOTE | 2016-05-26 08:06 | Pulmonology Progress Note ---
Assessment/Plan Assessment/Plan New Problems: Dx of Asthma, with acute exacerbation (ICD-493.9 Dx of Asthmatic bronchitis (ICD-493.90) GNR on sputum Dx of Body aches (ICD-780.99) Dx of Headache (ICD-784.0) Dx of Hx of pneumonia (ICD-V12.61) Dx of Chest tightness (ICD-786.59) Dx of Wheezing (ICD-786.07) Dx of Shortness of breath (ICD-786.05) Dx of Cough (ICD-786.2) PLAN dc home steroid taper at home Advair 500 albuterol nebs at home levaquin x 5 days singulair follow up after dc home health impression, plan, and exam edited and reviewed in detail care discussed with RN Subjective Allergies: Coded Allergies: No Known Allergies (Unverified , 10/08/13) Subjective much improved care noted would like to go home Objective Last 24 Hour Vital Signs Date Time Temp Pulse Resp B/P Pulse Ox O2 Delivery O2 Flow Rate FiO2 05/26/16 04:00 98.0 70 18 124/76 98 Nasal Cannula 2.0 05/26/16 00:00 98.0 73 16 141/72 94 Nasal Cannula 2.0 05/25/16 21:16 95 20 99 Nasal Cannula 2.0 28 05/25/16 21:08 95 20 95 Room Air 05/25/16 21:08 21 05/25/16 19:48 Nasal Cannula 2.0 28 05/25/16 19:48 97 Nasal Cannula 2.0 28 05/25/16 19:00 97.7 79 20 140/80 94 Nasal Cannula 2.0 05/25/16 18:47 97.9 05/25/16 16:00 98.1 89 20 119/65 96 Nasal Cannula 2.0 05/25/16 14:16 97.9 05/25/16 12:00 97.0 63 18 131/74 97 Room Air 05/25/16 09:46 21 05/25/16 09:45 69 18 96 Nasal Cannula 2.0 28 Intake and Output 05/25/16 05/26/16 19:00 07:00 Intake Total 790 ml 840 ml Balance 790 ml 840 ml Intake Oral 790 ml 840 ml # Voids 3 10 Objective WDWN some distress improved breath sounds bilaterally with minimal wheeze [id number] without MRG NABS nontender no HSM no CCE nonfocal alert and oriented x 3 EOMI Current Medications Medications (Trade) Dose Ordered Sig/Lalo Route PRN Reason Start Time Stop Time Status Last Admin Dose Admin Acetaminophen (Tylenol) 650 mg Q4H PRN ORAL Mild Pain/Temp > 100.5 05/22/16 23:30 06/21/16 23:29 05/24/16 12:40 Acetaminophen/ Hydrocodone Bitart ([place] 5/325) 1 tab Q4H PRN ORAL Moderate Pain (Pain Scale 4-6) 05/24/16 14:30 05/31/16 14:29 05/25/16 21:23 Albuterol/ Ipratropium (DuoNeb 0.5-3(2.5)mg/3ml) 3 ml Q4H PRN HHN Shortness of Breath 05/23/16 01:00 05/28/16 00:59 05/25/16 21:08 Ceftriaxone Sodium/Dextrose (Rocephin/D5W 50ml) 50 ml @ 100 mls/hr Q24H IVPB 05/22/16 23:45 05/29/16 23:44 05/26/16 00:46 Guaifenesin/ Codeine Phosphate (Robitussin with codeine) 5 ml Q4HR PRN ORAL For Cough 05/22/16 23:30 06/21/16 23:29 05/25/16 21:13 Heparin Sodium (Porcine) (Heparin 5000 units/ml) 5,000 units EVERY 12 HOURS SUBQ 05/23/16 09:00 06/22/16 08:59 05/25/16 21:14 Hydroxyzine HCl (Atarax) 25 mg BID PRN ORAL Itching 05/23/16 00:00 06/22/16 00:00 05/25/16 09:11 Magnesium Hydroxide (Mom) 30 ml DAILYPRN PRN ORAL Constipation 05/22/16 23:30 06/21/16 23:29 Methylprednisolone Sodium Succinate (Solu-MEDROL) 40 mg BID IVP 05/25/16 09:00 06/24/16 08:59 05/25/16 18:16 Montelukast Sodium (Singulair) 10 mg DAILY ORAL 05/23/16 09:00 06/22/16 08:59 05/25/16 09:11 Morphine Sulfate (Morphine Sulfate) 2 mg Q3HR PRN IVP Severe Pain (Pain Scale 7-10) 05/24/16 14:30 05/31/16 14:29 05/26/16 01:20 Pantoprazole (Protonix) 40 mg DAILY IVP 05/23/16 09:00 06/22/16 08:59 05/25/16 09:00 Pregabalin (Lyrica) 50 mg DAILY ORAL 05/23/16 09:00 06/22/16 08:59 05/25/16 09:13 Pregabalin (Lyrica) 100 mg BEDTIME ORAL 05/23/16 21:00 06/22/16 20:59 05/25/16 21:13 Salmeterol Xinafoate/ Fluticasone 1 puffs 1 puffs BID INH 05/23/16 09:00 06/22/16 08:59 05/25/16 19:47 Zolpidem Tartrate (Ambien) 5 mg HSPRN PRN ORAL Insomnia 05/25/16 17:30 06/24/16 17:29 05/26/16 00:46 LAYNE STEWART May 26, 2016 08:06
[2016-05-26] MEDS: Advair 250/50 Inhaler - 14 dose INH SCH (08:31)
[2016-05-26] MEDS: DuoNeb 0.5-3(2.5)mg/3ml neb HHN PRN (08:34)
[2016-05-26 08:59] VITALS: BP 126/73
[2016-05-26] MEDS: HydrOXYzine 25mg tab ORAL PRN (09:27)
[2016-05-26] MEDS: guaiFENesin w/Codeine 5ml Liq ud ORAL PRN (09:29)
[2016-05-26] MEDS: Solu-MEDROL 40mg Inj IVP SCH (09:45)
[2016-05-26] MEDS: Montelukast 10mg tablet ORAL SCH (09:45)
[2016-05-26] MEDS: Pantoprazole Inj IVP SCH (09:45)
[2016-05-26] MEDS: Lyrica 50mg cap ORAL SCH (09:45)
[2016-05-26] MEDS: Heparin 5000 units/ml inj SUBQ SCH (09:45)
[2016-05-26 11:45] VITALS: BP 131/72
[2016-05-26 16:00] VITALS: BP 97/75
--- NOTE | 2016-05-26 16:57 | General Progress Note ---
Assessment/Plan Problem List: (1) Back pain ICD Codes: M54.9 - Dorsalgia, unspecified SNOMED: 391965207 Qualifiers: (2) Lumbar radiculopathy, acute ICD Codes: M54.10 - Radiculopathy, site unspecified SNOMED: 635894515 (3) URI (upper respiratory infection) ICD Codes: J06.9 - Acute upper respiratory infection, unspecified SNOMED: 82357685 Qualifiers: Qualified Codes: J06.9 - Acute upper respiratory infection, unspecified; B97.89 - Other viral agents as the cause of diseases classified elsewhere (4) Asthma exacerbation ICD Codes: J45.901 - Unspecified asthma with (acute) exacerbation SNOMED: 386646733 Status: stable, progressing Assessment/Plan discharge planning per pulm. Subjective ROS Limited/Unobtainable: No Constitutional: Reports: malaise, weakness HEENT: Reports: no symptoms Cardiovascular: Reports: no symptoms Respiratory: Reports: cough, wheezing Gastrointestinal/Abdominal: Reports: no symptoms Genitourinary: Reports: no symptoms Neurologic/Psychiatric: Reports: no symptoms Endocrine: Reports: no symptoms Hematologic/Lymphatic: Reports: no symptoms Allergies: Coded Allergies: No Known Allergies (Unverified , 10/08/13) All Systems: reviewed and negative except above Subjective less sob. still with cough. no chest pain getting ready to go home. feels overall better. Objective Last 24 Hour Vital Signs Date Time Temp Pulse Resp B/P Pulse Ox O2 Delivery O2 Flow Rate FiO2 05/26/16 11:45 97.6 93 14 131/72 99 Room Air 05/26/16 10:50 98.4 05/26/16 08:59 97.2 89 15 126/73 100 Nasal Cannula 05/26/16 08:25 Nasal Cannula 2.0 28 05/26/16 08:25 100 Nasal Cannula 2.0 28 05/26/16 04:00 98.0 70 18 124/76 98 Nasal Cannula 2.0 05/26/16 00:00 98.0 73 16 141/72 94 Nasal Cannula 2.0 05/25/16 21:16 95 20 99 Nasal Cannula 2.0 28 05/25/16 21:08 95 20 95 Room Air 05/25/16 21:08 21 05/25/16 19:48 Nasal Cannula 2.0 28 05/25/16 19:48 97 Nasal Cannula 2.0 28 05/25/16 19:00 97.7 79 20 140/80 94 Nasal Cannula 2.0 Intake and Output 05/25/16 05/26/16 19:00 07:00 Intake Total 790 ml 840 ml Balance 790 ml 840 ml Intake Oral 790 ml 840 ml # Voids 3 10 Height (Feet): 5 Height (Inches): 9.00 Weight (Pounds): 210 Objective General Appearance: WD/WN, alert Neck: supple Cardiovascular: normal peripheral pulses, normal rate, regular rhythm Respiratory/Chest: expiratory wheezing Abdomen: normal bowel sounds, non tender, soft, no organomegaly, no mass Edema: no edema noted Arm (L), no edema noted Arm (R), no edema noted Leg (L), no edema noted Leg (R), no edema noted Pedal (L), no edema noted Pedal (R), no edema noted Generalized BETHANIE CAVANAUGH May 26, 2016 16:57
[2016-05-26] MEDS ORDERED: Tubing IV Secondary IV ONE (17:37)
--- NOTE | 2016-05-30 10:07 | Discharge Summary ---
Discharge Summary Hospital Course Date of Admission May 22, 2016 at 16:53 Date of Discharge May 26, 2016 at 17:00 Admitting Diagnosis dyspnea Reason for Hospitalization: dyspnea, cough HPI Ramya Crook is a 61 year old female who was admitted on May 22, 2016 at 16:53 for Dyspnea, cough cough x 6 months overall nonproductive, occasionally with phlegm ( white to yellow color) + wheezing, + chest tightness, + SOB denies fevers, chills denies hemoptysis hx of asthma/COPD former smoker using Albuterol at home prn Consultations pulmo dr Jarvis Hospital Course supplemental O2 pulmonary toilet with HHN and CPT sputum cx + Klebsiella, Enterobacter IV antibiotics IV steroids, tapered gradually CXR no acute cardiopulmonary disease antitussive prn started on Breo and Singulair, continue at home reinforce abstinence from smoking pain management with multiple regimen: Lyrica, muscle relaxant and [place] DVT, GI prophylaxis stable for dc home with fup with PMD Discharge Medications Continued Medications: Albuterol Sulfate* (Albuterol Sulfate Mdi*) 8.5 Gm Hfa.aer.ad 2 PUFF INH Q4H, #1 INH 0 Refills Codeine/Promethazine Hcl* (Promethazine-Codeine Syrup*) 118 Ml Syrup 5 ML ORAL Q6H PRN for For Cough, #118 ML 0 Refills Cyclobenzaprine Hcl* (Flexeril*) 10 Mg Tablet 10 MG ORAL THREE TIMES A DAY, TAB Hydroxyzine HCl (Hydroxyzine HCl) 25 Mg Inj 25 MG ORAL TWICE A DAY, #20 TAB 0 Refills Omeprazole (Omeprazole) 40 Mg Capsule.dr 40 MG ORAL DAILY, CAP Oxcarbazepine (Oxcarbazepine) 150 Mg Tab 150 MG ORAL TWICE A DAY, #60 TAB 0 Refills Oxycodone Hcl/Acetaminophen 7.5-325 (Oxycodon-Acetaminophen 7.5-325) 1 Each Tablet 1 TAB ORAL Q8HR, TAB Pregabalin (Lyrica) 150 Mg Capsule 150 MG ORAL DAILY, CAP Trazodone* (Trazodone*) 150 Mg Tablet 100 MG ORAL BEDTIME, TAB Discharge Condition Upon Discharge: improving, stable Discharge Disposition Patient was discharged to Home with Home Health() Discharge Diagnoses: (1) Acute asthma exacerbation (2) Bronchitis (3) Upper respiratory infection (4) Dyspnea (5) Lumbar radiculopathy, acute (6) Former cigarette smoker Discharge Instructions Discharge Instructions Special Instructions I have been assigned to complete a D/C Summary on this account. I was not involved in the patient management Jeannine Boggs NP ([facility]) May 30, 2016 10:07
== END 2016-05-26 17:00 | disposition home health service (06) | DRG 203 ==
LOC: EMR 16:25 → 4E 16:53 → EDBEDREQ 16:59
DX: J45.901 Unspecified asthma with (acute) exacerbation (principal); J06.9 Acute upper respiratory infection, unspecified; M54.16 Radiculopathy, lumbar region; M54.9 Dorsalgia, unspecified; Z87.01 Personal history of pneumonia (recurrent); Z83.3 Family history of diabetes mellitus; Z96.652 Presence of left artificial knee joint; Z87.891 Personal history of nicotine dependence
CPT/HCPCS: 36415; 71010; 80048; 80053; 82550; 82553; 84484; 85025; 87070; 87181; 87205; 93005; 94640; 94664; 94760; J7620

== ENCOUNTER 2016-07-01 15:50 | Emergency (ER) | payer MEDICARE, MEDICAID ==
[~2016-07-01] VITALS: Ht 175.3 cm; Wt 96.6 kg
[~2016-07-01 15:50] MED LIST changes: +LYRICA150 MG ORAL; +OMEPRAZOLE40 M1 ORAL
[2016-07-01 16:08] VITALS: BP 135/81
[2016-07-01] MEDS ORDERED: KEFLEX500 MG ORAL (16:10)
--- NOTE | 2016-07-01 16:19 | Emergency Room Report ---
History of Present Illness General Chief Complaint: General Complaint Source: Patient Present Illness HPI Patient is a 61-year-old female presented after increased right-sided facial swelling. Patient said this began after she squeezed and ingrown hair. Patient denied any severe headache. She had been taking her medications for COPD the patient reported having history of chronic pain as well as sciatica. She is currently taking her pain medications were patient stated that she initially had some numbness to her right upper extremity . She was concerned that she was having a stroke and she was having increased symptoms. Patient denies any severe neck pain. Allergies: Coded Allergies: No Known Allergies (Unverified , 10/08/13) Patient History Past Medical History: see triage record Now: No Reviewed Nursing Documentation: PMH: Agreed, PSxH: Agreed Nursing Documentation-PMH Past Medical History: No History, Except For Hx Cardiac Problems: No Hx Hypertension: Yes Hx Pacemaker: No Hx COPD: Yes Hx Diabetes: No Hx Cancer: No Hx Gastrointestinal Problems: No Hx Cerebrovascular Accident: No - SCIATICA, SINUS INFECTIONS Hx Transient Ischemic Attacks: Yes - 1981; 26 yrs old Hx Vertigo: Yes Review of Systems All Other Systems: negative except mentioned in HPI Physical Exam Vital Signs Date Time Temp Pulse Resp B/P Pulse Ox O2 Delivery O2 Flow Rate FiO2 07/01/16 15:57 98.2 75 16 141/88 98 Room Air General Appearance: well appearing, no apparent distress, alert, GCS 15, non- toxic Head: normocephalic, atraumatic ENT: hearing grossly normal, normal voice Neck: full range of motion, supple Respiratory: no respiratory distress, speaking full sentences Gastrointestinal: normal inspection, normal bowel sounds, non tender, soft Genitourinary: normal inspection, adnexa normal Musculoskeletal: normal inspection, digits/nails normal, no calf tenderness Neurologic: normal inspection, alert, oriented x3, responsive, proof load mechanic III-XII nml as tested, normal gait Psychiatric: mood/affect normal Skin: no rash Medical Decision Making Diagnostic Impression: Primary Impression: Cellulitis Additional Impression: COPD (chronic obstructive pulmonary disease) ER Course The patient presented for facial swelling. Differential diagnosis included was not limited to cellulitis, abscess, dental infection, tumor among others. Patient's benign exam and does not appear to require any further imaging or laboratory testing at this time. The patient has a normal normal neurologic exam. And has no evidence of CVA. Patient was noted to have brisk pulses. The patient is advised to follow up with primary care doctor in 1-2 days. Patient is advised to return if any worsening condition or if any changes in status that are concerning. Patient appears to have an infection to her face requires antibiotics and patient was advised of the wound rechecked in one to 2 days with her doctor. Last Vital Signs Date Time Temp Pulse Resp B/P Pulse Ox O2 Delivery O2 Flow Rate FiO2 07/01/16 16:08 98.6 73 14 135/81 100 Room Air Status: improved Disposition: HOME, SELF-CARE Condition: Stable Scripts Cephalexin* (KEFLEX*) 500 Mg Capsule 500 MG ORAL EVERY 6 HOURS, #28 CAP 0 Refills Prov: Gualberto Chery 07/01/16 Patient Instructions: Cellulitis, Chronic Obstructive Pulmonary Disease Gualberto Chery Jul 01, 2016 16:19
== END 2016-07-01 16:17 | disposition home or self-care (01) ==
LOC: EMR 16:10
DX: L03.90 Cellulitis, unspecified (principal); J44.9 Chronic obstructive pulmonary disease, unspecified; Z86.73 Personal history of transient ischemic attack (TIA), and cerebral infarction without residual deficits; M54.30 Sciatica, unspecified side
CPT/HCPCS: 99283

== ENCOUNTER 2016-07-18 09:37 | Emergency (ER) | payer MEDICARE, MEDICAID ==
[~2016-07-18] VITALS: Ht 175.3 cm; Wt 96.6 kg
[~2016-07-18 09:37] MED LIST changes: +KEFLEX500 MG ORAL
[2016-07-18 11:35] VITALS: BP 155/79
[2016-07-18] MEDS ORDERED: IBUPROFEN800 MG ORAL (11:37)
[2016-07-18] MEDS ORDERED: Ketorolac 60mg Inj IM ONE (11:45)
[2016-07-18 11:57] VITALS: BP 145/68
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
== END 2016-07-18 12:00 | disposition home or self-care (01) ==
LOC: EMR 11:06
DX: S86.911A Strain of unspecified muscle(s) and tendon(s) at lower leg level, right leg, initial encounter (principal); G89.29 Other chronic pain; Z86.73 Personal history of transient ischemic attack (TIA), and cerebral infarction without residual deficits; J44.9 Chronic obstructive pulmonary disease, unspecified; J45.909 Unspecified asthma, uncomplicated; I10 Essential (primary) hypertension; M19.90 Unspecified osteoarthritis, unspecified site; X58.XXXA Exposure to other specified factors, initial encounter; Y92.9 Unspecified place or not applicable; Y99.8 Other external cause status
CPT/HCPCS: 96372; 99283

== ENCOUNTER → 2016-08-11 | Outpatient (CLI) | payer MEDICARE, MEDICAID ==
--- NOTE | 2016-08-11 12:43 | Diagnostic Imaging Report ---
Indication: Cough Comparison: None 2 views of the chest obtained. Findings: Cardiomediastinal silhouette and pulmonary vascularity are within normal limits for age. The diaphragmatic contour is smooth and costophrenic angles are sharp. No pleural effusions are identified. The bones are unremarkable. Spinal fusion hardware partially noted in the lumbar spine. Impression: No acute disease
== END | disposition home or self-care (01) ==
LOC: RAD 10:45
DX: R05 Cough (principal)
CPT/HCPCS: 71020

== ENCOUNTER 2017-09-20 14:39 | Outpatient (CLI) | payer MEDICARE, MEDICAID ==
[2017-09-20 15:00] VITALS: BP 130/66
[2017-09-20] MEDS ORDERED: OXYCODONE HCL10 MG ORAL (17:00)
[2017-09-20] MEDS ORDERED: ADVAIR 250-501 EACH INH (17:00)
--- NOTE | 2017-10-10 09:59 | GI Initial Consult Note ---
History of Present Illness General Date patient seen: September 20, 2017 Time patient seen: 15:00 Referring physician: PAT Reason for Consultation: RECTAL BLEED Present Illness HPI 62 year old patient referred by Dr. Jarvis for evaluation of rectal bleed x 1 week in which the patient describes as bright red. In addition, the patient presents with c/o of GERD and occasional constipation. Had a colonoscopy performed in 2017, which was negative at [facility]. Denies any unintentional weight loss or changes in dietary habits. No signs of abuse or neglect. Patient is not fall risk. Home Meds Active Scripts Albuterol Sulfate* (ALBUTEROL SULFATE MDI*) 8.5 Gm Hfa.aer.ad, 2 PUFF INH Q4H, # 1 INH 0 Refills Prov:Mary Myrick.Gerard 02/17/16 Reported Medications Fluticasone/Salmeterol (Advair 250-50 Diskus) 1 Each Blst.w.dev, 1 PUFF INH EVERY 12 HOURS, EA 09/20/17 Oxycodone Hcl* (OXYCODONE HCL*) 10 Mg Tablet, 10 MG ORAL Q4H PRN for For Pain, TAB 09/20/17 Pregabalin (LYRICA) 150 Mg Capsule, 150 MG ORAL BID, CAP PO 1 tab in am , PO 2 tab qhs 05/22/16 Omeprazole (OMEPRAZOLE) 40 Mg Capsule.dr, 40 MG ORAL DAILY, CAP 05/22/16 Med list reviewed/reconciled: Yes Allergies: Coded Allergies: ZINC (Verified Allergy, Intermediate, FLUSHING , 10/01/17) Patient History History Provided By: Patient PMH Narrative COPD Asthma Manic depressive Past Surgical History: back surgery x 3 Family History Narrative Father >> CVA Mother >> Lung CA Sister >> Ovarian CA Brother >> ND Social History: Reports: smoking - quit 30 years ago; Denies: alcohol use, drug use, other Review of Systems All Other Systems: negative except mentioned in HPI Physical Exam T 97.5 BP 130/66 P 66 97 RA HT 5'9 WT 223lbs Sp02 EP Interpretation: reviewed, normal General Appearance: well appearing, no apparent distress, alert Head: normocephalic EENT: PERRL/EOMI, normal ENT inspection Neck: supple Respiratory: normal breath sounds, no respiratory distress Cardiovascular: normal rate Gastrointestinal: normal inspection, non tender, soft, normal bowel sounds, non -distended Rectal: deferred Genitourinary: no CVA tenderness Musculoskeletal: normal inspection, back normal Neurologic: normal inspection, alert, oriented x3, responsive Psychiatric: normal inspection, judgement/insight normal, memory normal Skin: normal inspection, normal color, no rash, warm/dry, palpation normal, well hydrated Lymphatic: normal inspection, no adenopathy GI: Plan Problems: (1) Therapeutic opioid-induced constipation (OIC) (2) Colonoscopy planned (3) Rectal bleed (4) GERD (gastroesophageal reflux disease) Plan EGD/colonoscopy scheduled 10/01/17. - CLD & (Nulytely/Suprep/Movi-Prep) prep instructions given and acknowledged by patient. - NPO @ MT day prior procedure explained. Rx Movantik Trial Seen with Dr. Banks. Thank you for this patient referral. The patient was seen and examined at bedside and all new and available data was reviewed in the patients chart. I agree with the above findings, impression and plan. (Patient seen earlier today. Signature stamp does not reflect patient encounter time.). - Neil Banks MD Note this is a late entry. Yves Rodgers NP October 10, 2017 09:59
== END 2017-09-20 15:11 | disposition home or self-care (01) ==
LOC: PAN 14:39
DX: K62.5 Hemorrhage of anus and rectum (principal); K21.9 Gastro-esophageal reflux disease without esophagitis; K59.03 Drug induced constipation; T40.2X5A Adverse effect of other opioids, initial encounter; Y92.9 Unspecified place or not applicable; J44.9 Chronic obstructive pulmonary disease, unspecified; F32.9 Major depressive disorder, single episode, unspecified; F17.200 Nicotine dependence, unspecified, uncomplicated; Z82.3 Family history of stroke; Z80.1 Family history of malignant neoplasm of trachea, bronchus and lung; Z80.41 Family history of malignant neoplasm of ovary
CPT/HCPCS: 99201

== ENCOUNTER 2017-10-01 09:08 | Day surgery (SDC) | payer MEDICARE, MEDICAID ==
[~2017-10-01] VITALS: Ht 175.3 cm; Wt 104.3 kg
[~2017-10-01 09:08] MED LIST changes: +ADVAIR 250-501 EACH INH; +OXYCODONE HCL10 MG ORAL
[2017-10-01 09:45] VITALS: BP 134/59
[2017-10-01] MEDS ORDERED: LR 1000ml 1,000 ML IVLG SCH (09:59)
[2017-10-01] MEDS ORDERED: fentaNYL 100 mcg/2 mL IV PRN (10:00)
[2017-10-01] MEDS ORDERED: DiphenhydrAMINE 50mg/ml Inj IVP PRN (10:00)
[2017-10-01] MEDS ORDERED: Atropine Inj 1mg/10ml Syr IV PRN (10:00)
[2017-10-01] MEDS ORDERED: Norco 5mg/325mg tab ORAL PRN (10:00)
[2017-10-01] MEDS ORDERED: Ketorolac 30mg Inj IV PRN ×2 (10:00)
[2017-10-01] MEDS ORDERED: Metoclopramide 10mg/2ml Inj IVP PRN (10:00)
[2017-10-01] MEDS ORDERED: oxyCODONE HCL/Acetaminophen 5/325mg ORAL PRN (10:00)
[2017-10-01] MEDS ORDERED: Midazolam 2mg/2ml Inj IVP PRN (10:00)
[2017-10-01] MEDS ORDERED: HYDROcodone/Acetamin 7.5/325 tab ORAL PRN (10:00)
[2017-10-01] MEDS ORDERED: Labetalol 5mg/ml 20ml vial IV PRN (10:00)
[2017-10-01] MEDS ORDERED: LORazepam Inj 2mg/ml 1ml IV PRN (10:00)
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
--- NOTE | 2017-10-01 11:02 | Immediate Post-Op Evaluation ---
Immediate Post-Op Evalulation Immediate Post-Op Evalulation Procedure: EGD/Colonoscopy Date of Evaluation: October 01, 2017 Time of Evaluation: 12:33 IV Fluids: 600 LR Blood Products: 0 Estimated Blood Loss: 1 Urinary Output: 0 Blood Pressure Systolic: 132 Blood Pressure Diastolic: 82 Pulse Rate: 57 Respiratory Rate: 16 O2 Sat by Pulse Oximetry: 100 Temperature (Fahrenheit): 97.4 Pain Score (1-10): 1 Nausea: No Vomiting: No Complications 0 Patient Status: awake, reacts, patent, none Hydration Status: adequate Cristino Vazquez MD October 01, 2017 11:02
--- NOTE | 2017-10-01 11:04 | 48 Hour Post Anesthesia Eval ---
Post Anesthesia Evaluation Procedure: EGD/Colonoscopy Date of Evaluation: October 01, 2017 Time of Evaluation: 15:41 Blood Pressure Systolic: 138 0: 87 Pulse Rate: 63 Respiratory Rate: 18 Temperature (Fahrenheit): 98.2 O2 Sat by Pulse Oximetry: 100 Airway: patent Nausea: No Vomiting: No Pain Intensity: 1 Hydration Status: adequate Cardiopulmonary Status: Stable Mental Status/LOC: patient returned to baseline Follow-up Care/Observations: 0 Post-Anesthesia Complications: 0 Follow-up care needed: ready to discharge Cristino Vazquez MD October 01, 2017 11:04
[2017-10-01] MEDS ORDERED: LR 1000ml ONE (11:30)
[2017-10-01] MEDS ORDERED: Lidocaine 1% MPF 10mg/ml 5ml ONE (11:30)
[2017-10-01] MEDS ORDERED: Midazolam 2mg/2ml Inj ONE (11:30)
[2017-10-01] MEDS ORDERED: Propofol 200mg/20ml IV ONE (11:30)
--- NOTE | 2017-10-01 11:42 | Pre-Procedure Note/Attestation ---
Pre-Procedure Note/Attestation Complete Prior to Procedure Planned Procedure: not applicable Procedure Narrative: esophagogastroduodenoscopy and colonoscopy Indications for Procedure Pre-Operative Diagnosis: GIB, abd pain,GERD Attestation I attest that I discussed the nature of the procedure; its benefits; risks and complications; and alternatives (and the risks and benefits of such alternatives ), prior to the procedure, with the patient (or the patient's legal ict sales representative). I attest that, if there was a reasonable possibility of needing a blood transfusion, the patient (or the patient's legal ict sales representative) was given the [facility] standardized written summary, pursuant to the Jac Marko Blood Safety Act ([place] Health and Safety Code # 1645, as amended). I attest that I re-evaluated the patient just prior to the surgery and that there has been no change in the patient's H&P, except as documented below: Neil Banks MD October 01, 2017 11:42
--- NOTE | 2017-10-01 11:43 | Short Stay Surgery H&P ---
History of Present Illness History of Present Illness Chief Complaint rectal bleed, abd pain, GERD HPI Ramya Crook is a 62 year old female who was admitted on for Gerd, Rectal Bleed Patient History Allergies: Coded Allergies: ZINC (Verified Allergy, Intermediate, FLUSHING , 10/01/17) PAST MEDICAL HISTORY: (1) Former cigarette smoker (2) COPD (chronic obstructive pulmonary disease) (3) Asthma exacerbation (4) GERD (gastroesophageal reflux disease) (5) Migraine Medication History Scheduled Albuterol Sulfate* (Albuterol Sulfate Mdi*), 2 PUFF INH Q4H Fluticasone/Salmeterol (Advair 250-50 Diskus), 1 PUFF INH EVERY 12 HOURS, ( Reported) Omeprazole (Omeprazole), 40 MG ORAL DAILY, (Reported) Pregabalin (Lyrica), 150 MG ORAL BID, (Reported) Scheduled PRN Oxycodone Hcl* (Oxycodone Hcl*), 10 MG ORAL Q4H PRN for For Pain, (Reported) Review of Systems Cardiovascular: Reports: no symptoms Respiratory: Reports: see HPI Skeletal: Reports: no symptoms Genitourinary: Reports: no symptoms Neurologic: Reports: see HPI Endocrine: Reports: no symptoms Hematologic: Reports: no symptoms Physical Exam Vital Signs Last Vital Signs Date Time Temp Pulse Resp B/P (MAP) Pulse Ox O2 Delivery O2 Flow Rate FiO2 10/01/17 09:45 97.6 62 18 134/59 100 Room Air 97.6 Skin: normal HENT: normal Heart: normal Lungs: normal Abdomen: normal Extremities: normal Plan Plan of Care esophagogastroduodenoscopy and colonoscopy Attestation Are the patient's medical conditions optimized for surgery? Attestation Response: yes Neil Banks MD October 01, 2017 11:43
--- NOTE | 2017-10-01 12:12 | Endoscopy Procedure Note ---
Endoscopy Procedure Note General Indication for Procedure: ABD PAIN, RECTAL BLEED, grd Procedures Performed: EGD, colonoscopy Operative Findings/Diagnosis: ESOPHAGITIS, HEMORRHOIS Specimen: yes Pt Tolerated Procedure Well: Yes Estimated Blood Loss: none Anesthesia Anesthesiologist: SHANT Anesthesia: MAC Inserted Devices Implant(s) used?: No Quality Quality of Bowel Preparation: Fair Did scope reach the cecum?: Yes Was there any complications?: No GI Core Measures 50 yrs or older w/o bx or poly: No 10yrs. F/U not recommended: Yes If not recommended, why?: Above average risk 10 yrs. F/U needed: Yes 18 years or older w/prev. colo: Yes <3yrs. since last colonoscopy: No Neil Banks MD October 01, 2017 12:12
[2017-10-01 12:55] VITALS: BP 138/72
[2017-10-01 13:22] VITALS: BP 135/75
--- NOTE | 2017-10-01 16:15 | Procedure Note ---
DATE OF PROCEDURE: 10/01/2017 SURGEON: Neil Banks M.D. ANESTHESIOLOGIST: Dr. Vazquez. REFERRING PHYSICIAN: Dr. Jean Jarvis M.D. PROCEDURE: Upper endoscopy with biopsy and colonoscopy with biopsy. ANESTHESIA: Per Dr. Vazquez. INSTRUMENT: Olympus adult flexible upper endoscope and colonoscope. INDICATION: Rectal bleeding, abdominal pain, chronic gastroesophageal reflux disease. The procedure, risks, benefits, and possible consequences, including hemorrhage, aspiration, perforation and infection, and alternative treatments, were explained to the patient/legal guardian by Dr. Neil Banks and the patient/legal guardian understood and accepted these risks. DESCRIPTION OF PROCEDURE: After informed consent was obtained and the patient was adequately sedated, Olympus upper endoscope was advanced from the mouth into the second portion of the duodenum and retroflexion was performed in the stomach. The patient has evidence of diffuse esophagitis in the distal esophagus [id number]. No evidence of any hiatal hernia. In the stomach, there was diffuse gastritis. Random biopsy from antrum was obtained to rule out H. pylori infection. At this time, the upper endoscope was retrieved. The patient was turned over for colonoscopy. First, rectal exam was performed which showed positive for internal hemorrhoids. Then, the scope was advanced from the rectum into the cecum documented by appendiceal orifice and ileocecal valve. Quality of prep was relatively good except for the cecum. Examination of the cecum was limited given the prep. The patient had 2 or 3 diminutive polyps in the rectosigmoid area, most probably hyperplastic. Two of them were biopsied. There was one or two scattered diverticulosis in the left colon, otherwise there is no any other pathology seen. Retroflexion of rectum showed evidence of few small internal hemorrhoids. SUMMARY OF FINDINGS: 1. Esophagitis. 2. Gastritis. 3. Two colonic polyps removed, see above for details. 4. Internal hemorrhoids. RECOMMENDATIONS: Follow up biopsy results and treat accordingly. I want to thank, Dr. Jean Jarvis. Neil Banks M.D. DR: Effie JOB#: [id number] CC: Jean Jarvis M.D.; Fax#: [phone]
--- NOTE | 2017-10-03 17:17 | Cardiology Report ---
APPROVED REPORT EKG Measurement Heart [id number] Normal sinus rhythm Possible Anterior infarct, age undetermined Abnormal ECG
== END 2017-10-01 13:30 | disposition home or self-care (01) ==
LOC: GAS 09:08
DX: K62.5 Hemorrhage of anus and rectum (principal); K29.50 Unspecified chronic gastritis without bleeding; K21.0 Gastro-esophageal reflux disease with esophagitis; K64.8 Other hemorrhoids; K63.5 Polyp of colon; J44.9 Chronic obstructive pulmonary disease, unspecified; Z87.891 Personal history of nicotine dependence; I10 Essential (primary) hypertension; F31.9 Bipolar disorder, unspecified; Z86.73 Personal history of transient ischemic attack (TIA), and cerebral infarction without residual deficits; H26.9 Unspecified cataract; Z91.048 Other nonmedicinal substance allergy status
CPT/HCPCS: 43239; 45380; 93005; J2250; J2704; J7120; 94003; 94150

== ENCOUNTER 2017-10-23 10:56 | Outpatient (CLI) | payer MEDICARE, MEDICAID ==
--- NOTE | 2017-10-23 16:09 | GI Progress Note ---
Assessment/Plan Problems: (1) GERD (gastroesophageal reflux disease) ICD Codes: K21.9 - Gastro-esophageal reflux disease without esophagitis SNOMED: 624536476 (2) Rectal bleed ICD Codes: K62.5 - Hemorrhage of anus and rectum SNOMED: 92779350 Status: stable Status Narrative Seen with Dr. Banks. Assessment/Plan SUMMARY OF FINDINGS: 1. Esophagitis. 2. Gastritis. 3. Two colonic polyps removed, see above for details. 4. Internal hemorrhoids. RECOMMENDATIONS: Follow up biopsy results and treat accordingly. >> negative bx rx Dexilant RTC prn repeat colonoscopy x 5 years Subjective Gastrointestinal/Abdominal: Reports: no symptoms Subjective has back pain Objective T 98.2 BP 146/79 P 64 96 RA General Appearance: WD/WN, no apparent distress, alert Cardiovascular: normal rate Respiratory/Chest: normal breath sounds, no respiratory distress Abdominal Exam: normal bowel sounds, non tender, soft Extremities: normal range of motion, non-tender Yves Rodgers NP Oct 23, 2017 16:09
== END 2017-10-23 11:30 | disposition home or self-care (01) ==
LOC: PAN 10:56
DX: K21.0 Gastro-esophageal reflux disease with esophagitis (principal); K62.5 Hemorrhage of anus and rectum; K29.70 Gastritis, unspecified, without bleeding; K63.5 Polyp of colon; K64.8 Other hemorrhoids
CPT/HCPCS: 99211

== ENCOUNTER 2018-03-01 18:04 | Emergency (ER) | payer MEDICARE, MEDICAID ==
[~2018-03-01] VITALS: Ht 175.3 cm; Wt 83.9 kg
[~2018-03-01 18:04] MED LIST changes: +OMEPRAZOLE20 M2 ORAL; +TRAZODONE HCL100 MG ORAL; +TRILEPTAL150 M2 ORAL; +VISTARIL25 M1 PO
[2018-03-01 18:30] VITALS: BP 164/66
[2018-03-01] MEDS ORDERED: HYDROcodone/Acetamin 10/325 tab ORAL ONE (18:45)
[2018-03-01] MEDS ORDERED: Methocarbamol 500mg tab ORAL ONE (18:45)
[2018-03-01] MEDS ORDERED: LIDOCAINE700 M1 TP (18:49)
[2018-03-01] MEDS ORDERED: TYLENOL EXTRA500 MG ORAL (18:49)
[2018-03-01] MEDS ORDERED: ROBAXIN500 MG PO (18:49)
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
[2018-03-01 19:04] VITALS: BP 164/66
== END 2018-03-01 19:06 | disposition home or self-care (01) ==
LOC: EMR 18:47
DX: M54.5 Low back pain (principal); G89.29 Other chronic pain; J44.9 Chronic obstructive pulmonary disease, unspecified; Z86.73 Personal history of transient ischemic attack (TIA), and cerebral infarction without residual deficits
CPT/HCPCS: 99283

== ENCOUNTER 2019-06-16 09:45 | Emergency (ER) | payer MEDICARE, MEDICAID ==
[~2019-06-16] VITALS: Ht 175.3 cm; Wt 96.6 kg
[~2019-06-16 09:45] MED LIST changes: +LIDOCAINE700 M1 TP; +ROBAXIN500 MG PO; +TYLENOL EXTRA500 MG ORAL
--- NOTE | 2019-06-16 10:00 | NUR ---
ED Nurse Note: pt relates pain is not relieved by home meds states she wants xrays as she feels something is wrong. awaits md cervantes. pt able to amb with cane use. no numbness or tingling. states tried to have mri but unable to tolerate experience.
[2019-06-16] MEDS ORDERED: Morphine Sulfate 2mg/ml Inj(IV/IM USE ONLY) IM ONE (10:45)
--- NOTE | 2019-06-16 11:08 | NUR ---
ED Nurse Note:pt medicated for pain. states has to have mri by pmd for back pain
[2019-06-16] MEDS ORDERED: MEDROL DOSEPAK4 MG ORAL (11:49)
--- NOTE | 2019-06-16 12:00 | NUR ---
ED Nurse Note: Pt cleared by health care Provider for discharge. DC instructions/prescription was given and explained to pt and verbalized understanding of teachings. All medical deviecs such as ID band removed. Pt is AAO x4, ambulatory and left with all personal belongings.
[2019-06-16 12:10] VITALS: BP 122/74
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
== END 2019-06-16 12:00 | disposition home or self-care (01) ==
LOC: EMR 10:48
DX: M54.5 Low back pain (principal); J44.9 Chronic obstructive pulmonary disease, unspecified; Z86.73 Personal history of transient ischemic attack (TIA), and cerebral infarction without residual deficits
CPT/HCPCS: 96372; 99283; J2270

== ENCOUNTER 2020-04-06 09:04 | Emergency (ER) | payer MEDICARE, MEDICAID ==
[~2020-04-06] VITALS: Ht 175.3 cm; Wt 96.6 kg
[~2020-04-06 09:04] MED LIST changes: +MEDROL DOSEPAK4 MG ORAL
[2020-04-06 09:21] VITALS: BP 118/85
--- NOTE | 2020-04-06 09:23 | NUR ---
ED Nurse Note:pt. c/o right ear/head/neck pain for 2 weeks
[2020-04-06] MEDS ORDERED: Phenytoin 500 MG in NS 110 ML IVPB ONE (09:45)
[2020-04-06] MEDS ORDERED: Ketorolac 30mg Inj IV ONE (09:45)
[2020-04-06] MEDS ORDERED: dexAMETHasone 10mg/ml Inj IV ONE (09:45)
[2020-04-06] MEDS ORDERED: carBAMazepine XR 200mg tab ORAL SCH (09:45)
[2020-04-06] MEDS ORDERED: carBAMazepine 200mg tab ORAL ONE (10:00)
[2020-04-06] MEDS ORDERED: LORazepam Inj 2mg/ml 1ml IV ONE (10:15)
[2020-04-06 10:39] VITALS: BP 118/85
[2020-04-06] MEDS ORDERED: CARBAMAZEPINE100 MG ORAL (10:46)
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
== END 2020-04-06 10:00 | disposition home or self-care (01) ==
LOC: EMR 09:30
DX: G50.0 Trigeminal neuralgia (principal); R51.9 Headache, unspecified; J44.9 Chronic obstructive pulmonary disease, unspecified; Z86.73 Personal history of transient ischemic attack (TIA), and cerebral infarction without residual deficits; Z88.8 Allergy status to other drugs, medicaments and biological substances
CPT/HCPCS: 96365; 96375; 99284; J1165; J1885; J7030